=== PATIENT | female | born 1970 | race Caucasian/White ===

== ENCOUNTER 2021-01-03 07:40 | Emergency (ER) | payer OTHER ==
[~2021-01-03] VITALS: Ht 160 cm; Wt 83.0 kg
[~2021-01-03 07:40] MED LIST: ACETAMINOPHEN500 MG PO; ATORVASTATIN CA10 MG PO; IBUPROFEN600 MG PO; LISINOPRIL10 MG PO; METFORMIN HCL500 M1 PO; PIOGLITAZONE HC30 MG PO
[2021-01-03] MEDS ORDERED: HYDROCODON-ACE1 EA10 PO (08:39)
[2021-01-03] MEDS ORDERED: ONDANSETRON ODT8 MG PO (08:42)
== END 2021-01-03 09:20 | disposition home or self-care (01) ==
LOC: ED 07:40
DX: S93.601A Unspecified sprain of right foot, initial encounter (principal); I10 Essential (primary) hypertension; E11.9 Type 2 diabetes mellitus without complications; Z91.048 Other nonmedicinal substance allergy status; Z79.899 Other long term (current) drug therapy; Z79.84 Long term (current) use of oral hypoglycemic drugs; X50.1XXA Overexertion from prolonged static or awkward postures, initial encounter
CPT/HCPCS: 73630; 99283-25